=== PATIENT | female | born 1945 | race Caucasian/White ===

== ENCOUNTER 2021-07-24 14:36 | Day surgery (SDC) | payer MEDICARE, OTHER ==
[~2021-07-24] VITALS: Ht 157.5 cm; Wt 84.3 kg
[2021-07-24] MEDS ORDERED: EPA FISH OIL1 SGL PO (15:17)
[2021-07-24] MEDS ORDERED: VITAMIND3 5000 PO (15:17)
[2021-07-24] MEDS ORDERED: CALCIUM 600 PLU1 TAB PO (15:19)
[2021-07-24] MEDS ORDERED: TAMOXIFEN CITRA20 MG PO (15:19)
[2021-07-24] MEDS ORDERED: TYLENOL 325MG325 MG PO (15:20)
[2021-07-24 15:45] VITALS: BP 158/64; PULSE 81; TEMP 96.8
[2021-07-24] MEDS ORDERED: ZETIA 10MG TAB10 MG PO (16:10)
[2021-07-24] MEDS ORDERED: ZOCOR 10MG10 MG PO (16:10)
[2021-07-24] MEDS ORDERED: PRILOSEC 20MG20 MG PO (16:11)
[2021-07-24] MEDS ORDERED: [UNRECOGNIZED DRUG - OTHER] PO (16:17)
[2021-07-24] MEDS ORDERED: COLACE 100100 MG/CAP PO ×2 (16:17→16:18)
[2021-07-24] MEDS ORDERED: MULTI VITAMINS1 TAB PO (16:19)
[2021-07-24] MEDS ORDERED: CLARITIN 1010 MG/TAB PO (16:19)
[2021-07-24] MEDS ORDERED: OSTEO-BI-FLEX 21 TAB PO (16:22)
[2021-07-24] MEDS ORDERED: TIROSINT150 MC1 PO (16:24)
[2021-07-24] MEDS ORDERED: MOTRIN 800800 MG/TAB PO (16:25)
[2021-07-24] MEDS ORDERED: FLONASEALLERGY NS (16:28)
[2021-07-24 22:45] VITALS: BP 146/69; PULSE 80; TEMP 97.6
--- NOTE | 2021-07-24 22:45 | NUR ---
Pt. arrived to the floor via bed from PACU. Pt. is A&OX3, assessment complete. IV to lt. hand patent, IV fluids infusing per orders. Three way deluna catheter with CBI, urine is clear and very pale yellow at this time. Pt. reports back pain at this time. Offered Tylenol or Morphine, per orders. Pt. reports that she normally take motrin. Dr. Guevara notified. New orders received.
[2021-07-24 23:00] VITALS: BP 146/64; PULSE 76; TEMP 97.8
[2021-07-24 23:15] VITALS: BP 133/66; PULSE 66; TEMP 97.8
[2021-07-24 23:30] VITALS: BP 134/62; PULSE 72; TEMP 97.7
[2021-07-24 23:59] VITALS: BP 146/64; PULSE 73; TEMP 97.8
[2021-07-25] VITALS: BP 135/60; PULSE 72
[2021-07-25 00:30] VITALS: BP 135/66; PULSE 75; TEMP 97.6
[2021-07-25 04:09] VITALS: BP 124/58; PULSE 74; TEMP 98.4
--- NOTE | 2021-07-25 07:00 | NUR ---
Bedside shift report received. Assumed care for day shift.
--- NOTE | 2021-07-25 07:25 | NUR ---
Primed and pulled at this time. Clamed, 250mls NS instilled, 20mls removed from balloon-deluna cath DCd. Tolerated well. Assisted up to bathroom at this time.
[2021-07-25 07:56] VITALS: BP 118/58; PULSE 81; TEMP 98.7
--- NOTE | 2021-07-25 09:00 | NUR ---
C/O pain to back-rating pain 4/10. Has received motrin/tylenol already and is refusing any narcotics. Offered K pad-given at this time. Will monitor.
--- NOTE | 2021-07-25 09:20 | NUR ---
Rn Quality met with patient to discuss discharge planning. Patient lives in [place], [place] with her , Greg (ph#[phone]) who is at bedside. Patient sees Dr. Bryant Leiva in [place] for primary care and obtains medications from [facility]. Patient does not use any DME and is independent with [facility]. Patient reports her , Greg is her DPOA-HC. Patient plans to return home at time of discharge. Discharge Plan: Home
--- NOTE | 2021-07-25 09:28 | NUR ---
Initial visit; Patient thanked [employer] for looking in on her and offering God's blessings.
--- NOTE | 2021-07-25 10:48 | NUR ---
Called stating she was having abdominal discomfort-states she feels as if she is constipated and hasnt had a bowel movement since Wednesday. MOM given per dr mays. Encouraged to ambulate in the hallways. Verbalizes understanding. Has voided x1-100mls peach colored urine. Received a call from Dr. Thompson stating if patient voids x2 without difficulty august. Instructed patient to call when voids again. Has been drinking well-1000mls since change of shift.
[2021-07-25 12:14] VITALS: BP 134/63; PULSE 74; TEMP 98.1
--- NOTE | 2021-07-25 12:42 | NUR ---
Voided 210 dark peach urine at this time. Discussed discharge and Dr Wu calling stating she could go after two voids. States she has ordered lunch and woudl like to eat prior to leaving. Will provide DC instructions when lunch is over.
--- NOTE | 2021-07-25 14:19 | NUR ---
Discharge instructions given both verbal and handwritten. Discussed F/U appt, s/s of infection and complications. Verbalizes understanding. Discussed home medications. INT to left hand DCd at this time-cath intact. Escroted off foreman in wheelchair by SHEYLA Mccarthy with spouse in stable condition.
== END 2021-07-25 14:20 | disposition home or self-care (01) ==
LOC: SDCO 14:36 → SURG 23:06 → SDCO 07-25 14:20
DX: C67.0 Malignant neoplasm of trigone of bladder (principal); N99.820 Postprocedural hemorrhage of a genitourinary system organ or structure following a genitourinary system procedure; C50.911 Malignant neoplasm of unspecified site of right female breast; E03.9 Hypothyroidism, unspecified; Z86.16 Personal history of COVID-19; Z79.810 Long term (current) use of selective estrogen receptor modulators (SERMs); Z79.890 Hormone replacement therapy
CPT/HCPCS: OP; C1769; C2617; J0330; J0360; J0690; J2405; J2704; J3010; J7120

== ENCOUNTER 2021-08-29 08:50 | Day surgery (SDC) | payer MEDICARE, OTHER ==
[~2021-08-29] VITALS: Ht 157.5 cm; Wt 38.8 kg
[~2021-08-29 08:50] MED LIST: CALCIUM 600 PLU1 TAB PO; CLARITIN 1010 MG/TAB PO; COLACE 100100 MG/CAP PO; EPA FISH OIL1 SGL PO; FLONASEALLERGY NS; MOTRIN 800800 MG/TAB PO; MULTI VITAMINS1 TAB PO; OSTEO-BI-FLEX 21 TAB PO; PRILOSEC 20MG20 MG PO; TAMOXIFEN CITRA20 MG PO; TIROSINT150 MC1 PO; TYLENOL 325MG325 MG PO; VITAMIND3 5000 PO; ZETIA 10MG TAB10 MG PO; ZOCOR 10MG10 MG PO; [UNRECOGNIZED DRUG - OTHER] PO
[2021-08-29 09:31] VITALS: BP 138/72; PULSE 80; TEMP 98.2
[2021-08-29 12:25] VITALS: BP 144/74; PULSE 76; TEMP 98.4
--- NOTE | 2021-08-29 12:25 | NUR ---
PT TO BAY 6 PER CART FROM PACU. RECEIVED REPORT FROM ANNA FERRIS. VS OBTAINED. PT REQUESTING ICE CHIPS. PT UP TO RESTROOM AND VOIDED WITHOUT DIFFICULTY. PT DENIES ANY ADDITIONAL NEEDS AT THIS TIME. WILL CONTINUE TO MONITOR.
[2021-08-29 12:40] VITALS: BP 152/69; PULSE 61
--- NOTE | 2021-08-29 12:40 | NUR ---
PT CONTINUES TO TOLERATE ICE CHIPS. DENIES ANY ADDITIONAL NEEDS AT THIS TIME.
[2021-08-29 12:55] VITALS: BP 155/68; PULSE 65
--- NOTE | 2021-08-29 12:55 | NUR ---
PT TOLERATING ICE WATER AND A MUFFIN AT THIS TIME. DENIES ANY ADDITIONAL NEEDS AT THIS TIME.
[2021-08-29 13:10] VITALS: BP 133/77; PULSE 66
--- NOTE | 2021-08-29 13:10 | NUR ---
PT STATES SHE IS READY FOR DISCHARGE.
--- NOTE | 2021-08-29 13:30 | NUR ---
IV DC'D AT THIS TIME. PT TOLERATED WELL.
--- NOTE | 2021-08-29 13:45 | NUR ---
DISCHARGE EDUCATION COMPLETED WITH PT AND HER . VERBALIZED UNDERSTANDING OF HOME AND FOLLOW UP CARE. ALL QUESTIONS ANSWERED. DISCHARGE PAPERWORK GIVEN TO PT.
--- NOTE | 2021-08-29 13:55 | NUR ---
PT OFF UNIT PER WHEELCHAIR. PT DISCHARGE TO HOME WITH PER PERSONAL VEHICLE.
[2021-08-29 15:14] VITALS: BP 144/74; PULSE 74
== END 2021-08-29 13:55 | disposition home or self-care (01) ==
LOC: SDCO 08:50
DX: C67.2 Malignant neoplasm of lateral wall of bladder (principal); C67.0 Malignant neoplasm of trigone of bladder; N32.89 Other specified disorders of bladder; R31.0 Gross hematuria; R82.998 Other abnormal findings in urine
CPT/HCPCS: J0690; J1100; J1885; J2405; J2704; J3010; J7120